=== PATIENT | male | born 1960 | race Asian ===

== ENCOUNTER → 2023-11-20 07:16 | Outpatient (REF) | payer MEDICARE, SELFPAY | LOC: RCS 07:16 | PROVIDERS: ATTENDING PHYSICIAN Internal Medicine Cardiovascular Disease; FAMILY PHYSICIAN Family Medicine | DX: I48.19 Other persistent atrial fibrillation (principal); I25.10 Atherosclerotic heart disease of native coronary artery without angina pectoris | CPT/HCPCS: 78452; 93017; A9500 ==

== ENCOUNTER → 2023-11-27 08:07 | Outpatient (REF) | payer MEDICARE, SELFPAY | LOC: DHCBC MAIN 08:07 | PROVIDERS: ATTENDING PHYSICIAN Internal Medicine Cardiovascular Disease; FAMILY PHYSICIAN Family Medicine | DX: I48.19 Other persistent atrial fibrillation (principal) | CPT/HCPCS: 93306 ==

== ENCOUNTER → 2024-01-16 07:57 | Outpatient (REF) | payer MEDICARE, OTHER, SELFPAY | LOC: HWRAD 07:57 | PROVIDERS: ATTENDING PHYSICIAN Family Medicine | DX: N40.0 Benign prostatic hyperplasia without lower urinary tract symptoms (principal); E11.59 Type 2 diabetes mellitus with other circulatory complications; R80.1 Persistent proteinuria, unspecified; Z87.442 Personal history of urinary calculi | CPT/HCPCS: 76770 ==

== ENCOUNTER → 2024-03-18 09:28 | Outpatient (REF) | payer MEDICARE, OTHER, SELFPAY ==
[2024-03-18 10:35] LABS: % Basophils 1.5 % (0-2); % Eosinophils 7.6 % (0-6); % Immature Granulocytes 0.6 % (0-0.5); % Lymphocytes 44.3 % (20.5-51.1); % Monocytes 7.8 % (1.7-9.3); % Neutrophils 38.2 % (42.2-75.2); Absolute Basophils 0.1 10^3/uL (0-0.2); Absolute Eosinophils 0.5 10^3/uL (0-0.7); Absolute Monocytes 0.5 10^3/uL (0.1-0.6); Absolute Neutrophils 2.6 10^3/uL (1.4-6.5); Hematocrit 46.7 % (39.0-52.0); Mean Corp Hgb Conc. 36.4 g/dL (33.0-37.0); Mean Corpuscular Hgb 31.4 pg (27.0-31.0); Mean Corpuscular Volume 86.3 fL (80.0-94.0); Mean Platelet Volume 10.5 fL (7.4-10.4); Nucleated Red Blood Cells % 0 % (-); Platelet Count 168 10^3/uL (130-400); Red Blood Cell Count 5.41 10^6/uL (4.70-6.10); Red Cell Dist. Width 12.4 % (11.5-14.5); White Blood Cell Count 6.8 10^3/uL (4.8-10.8)
[2024-03-18 10:46] LABS: ALT (SGPT) 49 U/L (0-50); AST (SGOT) 44 U/L (17-59); Albumin 5.2 g/dl (3.5-5.0); Alkaline Phosphatase 54 U/L (38-126); Calcium 10.1 mg/dl (8.4-10.2); Carbon Dioxide 27 mmol/L (22-30); Glucose 129 mg/dl (70-99); Potassium 4.9 mmol/L (3.5-5.1); Sodium 143 mmol/L (135-145); Total Protein 8.8 g/dl (6.3-8.2); eGFR > 60.00
[2024-03-18 11:10] LABS: Blood Urea Nitrogen 16 mg/dl (9-20); Chloride 104 mmol/L (98-107)
== END ==
LOC: SDSPAT 09:28
PROVIDERS: ATTENDING PHYSICIAN Internal Medicine Cardiovascular Disease; FAMILY PHYSICIAN Family Medicine; OTHER PHYSICIAN Internal Medicine Cardiovascular Disease
DX: Z01.818 Encounter for other preprocedural examination (principal); I48.19 Other persistent atrial fibrillation; I25.10 Atherosclerotic heart disease of native coronary artery without angina pectoris; I10 Essential (primary) hypertension; Z95.5 Presence of coronary angioplasty implant and graft; R06.02 Shortness of breath
CPT/HCPCS: 36415; 80053; 85025; 86850; 86900; 86901

== ENCOUNTER 2024-03-29 08:19 | Day surgery (SDC) | payer MEDICARE, OTHER, SELFPAY ==
[2024-03-18 10:10] VITALS: BMI 29.0
[2024-03-29] VITALS (9 sets, daily range): BP systolic 110–149; BP diastolic 73–91; BMI 28.2
[2024-03-29 13:19] LABS: ACT-LR - POC 379 Seconds (116-155)
[2024-03-29 13:42] LABS: ACT-LR - POC 385 Seconds (116-155)
--- NOTE | 2024-03-29 14:46 | ITS.CL.ABL ---
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
Ablation
Procedure Report:
AFIB ablation:
Mr. Goodman is a very pleasant 63 yr old gentleman with symptomatic persistent AF presented today to the EP lab for atrial fibrillation ablation.
Date of the Procedure:
03/29/2024
Indications:
Persistent atrial fibrillation
Pre-Operative Diagnosis:
Persistent atrial fibrillation
Post-Operative Diagnosis:
Persistent atrial fibrillation
Procedure Performed:
Atrial fibrillation ablation with Pulsed-Field approach for pulmonary vein isolation
Performing Physician:
Bernadette Anand MD
Assistants:
EP staff
Anesthesia:
See anesthesia records
Detailed Description of the Procedure:
Written informed consent was obtained from the patient after a full explanation of the risks and benefits of the procedure including the risks of sedation and anesthesia.
The patient was brought to the electrophysiology laboratory in stable condition in fasting state. Continuous electrocardiographic and hemodynamic monitoring was initiated.
The initial rhythm was atrial fibrillation.
The procedure site was meticulously prepared with surgical scrub and allowed to dry with no pooling. Sterile draping was applied to cover the procedure site. The image intensifier was draped with sterile bag and positioned over the patient. After
infusion of local anesthetic, vascular access was obtained under ultrasound guidance and sheaths were placed over guide wire as detailed below.
Sheath and Catheter Placement:
In the right femoral vein, an 8-Norwegian sheath was placed under ultrasound guidance for use during the ablation procedure and a mapping catheter was intermittently placed in the high right atrium, right ventricle, left atrium. In the right femoral
vein, another 9-Fr sheath was placed for use during intra-cardiac echo procedure. Another 7Fr sheath was placed in the left femoral vein for CS catheter placement.
The sheaths were upgraded as needed during the case. Intra-cardiac catheters were positioned using direct fluoroscopic guidance. Decapolar catheter advanced into CS position. ICE catheter was placed in RA. The following catheters / sheaths were
placed
Sheaths:
��������� 15Fr steerable sheath (FlexCath Cross�, [employer]) in right femoral vein in right femoral vein
��������� 9Fr in right femoral vein
��������� 7Fr in right femoral vein
Catheters:
��������� JIL HD Grid mapping catheter � at locations of RA, LA
��������� PulseSelect� PFA catheter
��������� ICE catheter -AcuNav - at locations of RA, SVC, and RV.
��������� Decapolar Bard catheter in RA and CS
Intracardiac ECHO:
An 8-Norwegian AcuNav intracardiac ECHO (ICE) probe was advanced through the 9-Norwegian sheath in the right femoral vein into the right atrium under fluoroscopic and ICE ultrasound image guidance and a baseline ECHO study was performed. The left atrial
size was dilated. There was moderate tricuspid regurgitation. The aortic valve was grossly normal. There was normal left ventricular systolic functions. There is no pericardial effusion. All the four veins were identified and has flow identified.
During the procedure, ICE was used for monitoring of complications, guidance of trans-septal puncture, monitor the catheter position and tracking ablation lesions. No change in the pericardial space noted throughout the procedure.
Trans-septal Puncture:
Heparin was initiated and infused to maintain appropriate ACT. A J-tipped guidewire was advanced through the 8-Norwegian sheath in the right femoral vein into the superior vena cava under fluoroscopic and ICE guidance. The 8-Norwegian sheath was exchanged
for a FlexCath Cross sheath which was advanced into the superior vena cava. An [employer] transseptal access system was utilized to perform the trans-septal puncture. The apparatus was withdrawn until it was in contact with the fossa ovalis. The
position was adjusted based on fluoroscopy and ultrasound images from ICE. Under fluoroscopic, hemodynamic and ICE ultrasound guidance, left atrium was cannulated by advancing the needle. Once atrial septum was cannulated, the needle was pulled back
and a guide wire was advanced through the needle into the left atrium. The guide wire was advanced into the left superior pulmonary vein. Both the sheath and the dilator was advanced into the left atrium. The dilator with the needle was withdrawn.
Blood was aspirated from the FlexCath cross sheath and arterial blood confirmed. The sheath was flushed. Saline injection noted into the left atrium on ICE. The mapping catheter was advanced in the Agilis sheath into the left pulmonary vein. Left
atrial pressure was measured.
3D Electroanatomic Mapping:
Using the HD Grid catheter advanced through sheath into the left atrium, an electroanatomic map (EAM) of the left atrium was created using [employer] mapping system. The map was used for localization of catheter position and tacking of ablation
lesions. The EAM of the left atrium showed 4 pulmonary veins with two left sided and two right sided veins electrically connected to the body the LA. There was only scattered areas of low voltage noted in the left atrium with minimal electrical
activity in the posterior wall in atrial fibrillation. But once mapped in sinus rhythm, the anterior jade had some healthy areas with patchy scar all over the LA. There was slow conduction noted in the posterior wall and had high risk for roof
dependent flutter and decision was made to create posterior wall isolation.
The LA was dilated in size.
Following the EAM, preparation were made for ablation. The neuromuscular paralysis was reversed.
Ablation:
Ablation # 1: Pulmonary vein Isolation:
Using [employer]� pulsed field ablation system, pulmonary vein isolation was achieved. First the ablation catheter was placed in the LSPV and ostial ablation lesions were performed in a counter clock stacy approach all around the PV ostium
circumferentially. Then the catheter was placed on the antral location and multiple ablation lesions were placed circumferentially on the antrum of the vein.
There was bradycardia and pause noted with ablation of the parasympathetic ganglion.
In the similar fashion, the LIPV were isolated.
Then the catheter was moved to right sided veins. The ostial and antral ablations were placed as noted above.
Cardioversion:
Once the PV isolation was achieved, decision was made to proceed with cardioversion. A 200 J biphasic shock was applied on the amy posterior Zoll patches and sinus rhythm was achieved. No significant pause noted.
Ablation # 2: Posterior wall isolation:
Using the pulsed field ablation catheter, the catheter was placed on the posterior wall and moved around the posterior wall to have adequate contact and ablations were placed isolating the posterior wall.
Electroanatomic mapping of LA
Once the sinus rhythm achieved, the LA was mapped with HD grid in detail. There were areas of the LSPV and RSPV antrum that were still connected and decision was made to apply further ablations.
While mapping, patient went back into atrial fibrillation.
Reconnections ablation:
The areas of the antrum were ablated using the pulsed field PulseSelect PFA catheter.
Post ablation Electroanatomic mapping:
Once ablation was completed, the EAM of the LA was done again in sinus rhythm with excellent demarcation of LA myocardium and isolated antral tissue. There was dissociated signals were noted in the veins as well.
EPS and Confirmation of the PVI and bidirectional block:
Following achievement of entrance block at the pulmonary veins, pacing from the HD catheter in each of the four veins at 10 milliamps for 2 milliseconds showed entrance and exit block. All PVI were rechecked at the end of the case and remained
isolated with dissociated and local capture with pacing. Entrance and exit block were demonstrated in all veins.
Procedure End
ICE study was done again that showed no epicardial accumulation. No complications noted.
Following the completion of the EP study, catheters were removed. Protamine 40 mg was given at the end of the procedure and ACT was checked repeatedly. The sheaths were removed and hemostasis achieved with manual compression after acceptable ACT is
achieved.
Left atrial Pressure:
Pre-Procedure: Mean LA pressure was 10mmHg
Post-Procedure: Mean LA pressure was 14mmHg
Post-Procedure: Mean LR pressure was 6mmHg
Estimated Blood loss:
<10 cc
Specimens Removed:
None.
Implants / Devices:
None
Urine output:
None
Packs / Drains/ Tubes:
None
Instrument / Sponge Count Correct:
Yes
Complications of the Procedure:
None
Condition of Patient at Time of Transfer:
Hemodynamically stable with no neurological or vascular compromise.
Summary:
Successful atrial fibrillation ablation with Pulsed Field approach for pulmonary vein isolation
Figures from the Procedure:
Figure 1: The electroanatomic mapping (EAM) of the left atrium with bipolar voltage (purple indicates normal electrical activity with louis as no myocardial muscle electric activity indicating a line of block or scar.
[2024-03-29 14:50] LABS: Glucose - Point of Care 161 mg/dl (70-99)
[2024-03-29] MEDS: ANESTHETIC LOZENGE 1 LOZENGE PO (15:08)
--- NOTE | 2024-03-29 16:37 | W.PN.UPDATE ---
Addendum entered and electronically signed by BIANCA Krause 03/29/24 17:34:
Right groin site stable, no further bleeding. OOB ambulating and urinating without difficulty.
D/C home tonight.
Original Note:
Update Note
Progress Note Update
Pt seen post PFA. Right groin with vascade closure that was oozy and with mild bleeding post op. Manual pressure held with innoseal closure. After prolonged bedrest, pt sat up, site with moderate bleeding now. Manual pressure held again for 20
minutes. Will keep on bedrest for a full 60 min and if continues to bleed, will stay overnight.
Post EKG NSR 70s, no acute changes. Resume eliquis tonight, continue other meds as before. Followup at [facility] arranged. Will monitor for now and if groin stable, will d/c home later. If it is still bleeding, he will remain overnight for observtaion.
Dr. Anand aware of plan.
[2024-04-01 11:13] LABS: ACT-LR - POC > 397 Seconds (116-155)
[2024-04-01 11:13] LABS: ACT-LR - POC > 397 Seconds (116-155)
== END 2024-03-29 17:30 | disposition home or self-care (01) ==
LOC: CATH 08:19
PROVIDERS: ATTENDING PHYSICIAN Internal Medicine Cardiovascular Disease; FAMILY PHYSICIAN Family Medicine; OTHER PHYSICIAN Internal Medicine Cardiovascular Disease
DX: I48.19 Other persistent atrial fibrillation (principal); Z79.01 Long term (current) use of anticoagulants; I10 Essential (primary) hypertension; E11.9 Type 2 diabetes mellitus without complications
CPT/HCPCS: 93657; 93655; C1732; C1733; C1894; C1769; C1892; C1759; 76937; 82962; 85347; 93005; 93656; C1760